=== PATIENT | male | born 1995 | race Caucasian/White ===

== ENCOUNTER 2016-12-25 14:18 | Emergency (ER) | payer OTHER ==
[2016-12-25 14:47] VITALS: BMI 34.4
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
[2016-12-25] MEDS ORDERED: DIPHTH,PERTUSS(ACELL),TET 0.5 ML DISP.SYRIN IM ONE (15:29)
[2016-12-25] MEDS ORDERED: IBUPROFEN 600 MG TABLET (FP) PO ONE ×2 (15:29→15:43)
[2016-12-25] MEDS ORDERED: SULFAMETHOXAZOLE/TRIMETHOPRIM 800MG/160MG D.S. TABLET PO ONE (15:29)
[2016-12-25] MEDS ORDERED: CEPHALEXIN MONOHYDRATE 500 MG CAPSULE (UD) PO ONE (15:42)
[2016-12-25] MEDS ORDERED: SULFAMETHOXAZOLE/TRIMETHOPRIM 800MG/160MG D.S. TABLET ONE (15:43)
[2016-12-25] MEDS ORDERED: CEPHALEXIN MONOHYDRATE 250 MG CAPSULE (FP) ONE (15:57)
[2016-12-25 16:04] VITALS: BP 140/88; PULSE 82; TEMP 98.7
== END 2016-12-25 16:04 | disposition home or self-care (01) ==
LOC: JER 14:18
PROC: 3E0234Z Introduction of Serum, Toxoid and Vaccine into Muscle, Percutaneous Approach (ICD-10-PCS; principal; 2016-12-25)
DX: T24.001A Burn of unspecified degree of unspecified site of right lower limb, except ankle and foot, initial encounter (principal); L03.116 Cellulitis of left lower limb; B96.89 Other specified bacterial agents as the cause of diseases classified elsewhere; V28.0XXA Motorcycle driver injured in noncollision transport accident in nontraffic accident, initial encounter; Y93.89 Activity, other specified
CPT/HCPCS: 87070; 87186; 87205; 90471; 90715; 99283-25

== ENCOUNTER 2017-01-20 19:15 | Emergency (ER) | payer OTHER ==
[2017-01-20 19:20] VITALS: BP 145/77; PULSE 83; TEMP 98.7; BMI 34.4
--- NOTE | 2017-01-20 20:03 | PDOC ---
History of Present Illness - General Chief Complaint: Redness To Affected Area Stated Complaint: PAIN Time Seen by Provider: 01/20/17 19:54 History Source: Patient Exam Limitations: No Limitations - History of Present Illness Initial Comments: 01/20/17 20:54 Patient is here with complaints of persistent flaking rash to his scalp. Was seen a few months ago, and prescribed griseofulvin which did not resolve his issue. Admits to get scalp, causing worsen scabbed and some mild tenderness. Denies fever, denies any other patches elsewhere. Timing/Duration: reports: constant, getting worse Severity: Yes: mild, moderate Location: reports: scalp Modifying Factors: improves with: scratching Associated Symptoms: reports: denies symptoms Past History - Travel Traveled outside of the country in the last 30 days: No Close contact w/someone who was outside of country & ill: No - Past Medical History Allergies/Adverse Reactions: Allergies Allergy/AdvReac Type Severity Reaction Status Date / Time No Known Allergies Allergy Verified 01/20/17 19:18 Home Medications: Ambulatory Orders Cephalexin [Keflex] 500 mg PO Q6H #28 capsule 12/26/16 Ibuprofen 600 mg PO Q6H #30 tablet 12/26/16 Sulfamethoxazole/Trimethoprim [Bactrim DS -] 1 tab PO BID #14 tablet 12/26/16 Sulfamethoxazole/Trimethoprim [Bactrim *Ds*] 1 each PO BID #14 tablet 01/20/17 Suicide Attempt (Hx): No - Surgical History Neurologic Surgery: Yes (Brain tumor removed) - Immunization History Immunization Up to Date: Yes - Psycho/Social/Smoking Cessation Hx Anxiety: No Suicidal Ideation: No Smoking Status: No Smoking History: Never smoked Have you smoked in the past 12 months: No Number of Cigarettes Smoked Daily: 0 Hx Alcohol Use: No Drug/Substance Use Hx: No Substance Use Type: Alcohol Review of Systems - Review of Systems Able to Perform ROS?: Yes Is the patient limited Romanian proficient: Yes Constitutional: Yes: Symptoms Reported, See HPI, Malaise. No: Fever HEENTM: Yes: Symptoms Reported, See HPI, Other (drainage and flaking of scalp) Respiratory: No: Symptoms reported Integumentary: Yes: Symptoms Reported, Bruising, Lesions, Rash Neurological: No: Symptoms reported All Other Systems: Reviewed and Negative *Physical Exam - Vital Signs Last Vital Signs Temp Pulse Resp BP Pulse Ox 98.7 F 83 18 145/77 99 01/20/17 19:18 01/20/17 19:18 01/20/17 19:18 01/20/17 19:18 01/20/17 19:18 - Physical Exam General Appearance: Yes: Nourished, Appropriately Dressed, Apparent Distress, Mild Distress HEENT: positive: RAJ, Normal ENT Inspection, TMs Normal, Pharynx Normal Neck: positive: Supple. negative: Lymphadenopathy (R), Lymphadenopathy (L) Respiratory/Chest: positive: Lungs Clear, Normal Breath Sounds Extremity: positive: Normal Capillary Refill, Normal Inspection Integumentary: positive: Rash, Other (excoriated with open wound at the crown of scalp in patches scattered throughout same area consistent with appearance of secondary impetigo with underlying tinea) Neurologic: positive: content strategy lead II-XII NML intact, Fully Oriented, Alert, Normal Mood/ Affect, Normal Response, Motor Strength 5/5 Progress Note - Progress Note Progress Note: Tinea capitis with secondary cellulitis/impetigo. She suffers from abscesses therefore is probably MRSA related and will treat with Bactrim to cover. Labs obtained to allow long-term continue treatment by PMD *DC/Admit/Observation/Transfer Diagnosis at time of Disposition: Tinea capitis Cellulitis Qualifiers: Site of cellulitis: head Qualified Code(s): L03.811 - Cellulitis of head [any part, except face] - Discharge Dispostion Disposition: HOME Condition at time of disposition: Stable Admit: No - Patient Instructions Printed Discharge Instructions: Tinea Capitis, DI for Impetigo Additional Instructions: Rest, keep cool and dry- avoid strenuous activity or hot /humid environments Less hot showers, no abrasive soaps May use Benadryl at night for antihistamine, Zyrtec/ Maria Elena or Claritin for daytime antihistamine use to help with itching Use head and shoulders and allowed to soak overnight without shampoo treatment of tinea Follow up with Private Dr for reevaluation and hopeful initiation of long-term tinea treatment t Bactrim every 12 hours for 1 week Try to identify cause for rash and avoid exposures Followup with PMD in one week if no resolution Make appointment with bank note designer for evaluation when possible - Post Discharge Activity Work/School Note: Back to Work
[2017-01-20] MEDS ORDERED: SULFAMETHOXAZOLE/TRIMETHOPRIM 800MG/160MG D.S. TABLET PO ONE (20:54)
[2017-01-20] MEDS ORDERED: SULFAMETHOXAZOLE/TRIMETHOPRIM 800MG/160MG D.S. TABLET ONE (20:58)
[2017-01-20 21:07] LABS: BASOPHIL 0.6 % (0-2.0); EOSINOPHIL 0.8 % (0-4.5); MCH 29.7 pg (25.7-33.7); MCHC 34.7 g/dl (32.0-35.9); MEAN CELL VOLUME 85.7 fl (80-96); MEAN PLT VOLUME 7.9 fl (7.5-11.1); NEUTROPHILS 67.8 % (42.8-82.8); PLATELET COUNT 261 K/MM3 (134-434); RDW 12.7 % (11.9-15.9); WHITE BLOOD COUNT 10.8 K/mm3 (4.0-10.0)
[2017-01-20 21:37] LABS: ALBUMIN 4.2 g/dl (3.4-5.0); ALK PHOS 65 U/L (45-117); ANION GAP 8 (8-16); BILIRUBIN,TOTAL 0.9 mg/dL (0.2-1.0); CALCIUM 9.6 mg/dL (8.5-10.1); CO2 27 mmol/L (21-32); CREATININE 0.9 mg/dL (0.7-1.3); GLUCOSE,RANDOM 84 mg/dL (74-106); SGOT/AST 15 U/L (15-37); SGPT/ALT 43 U/L (12-78); TOT PROT 7.8 g/dl (6.4-8.2)
== END 2017-01-20 21:16 | disposition home or self-care (01) ==
LOC: JERFT 19:15
DX: B35.0 Tinea barbae and tinea capitis (principal); L03.811 Cellulitis of head [any part, except face]; L01.09 Other impetigo
CPT/HCPCS: 36415; 80053; 85025; 99281-25

== ENCOUNTER 2017-02-16 16:30 | Emergency (ER) | payer SELFPAY ==
[2017-02-16 16:45] VITALS: BP 121/71; TEMP 98.8; BMI 33.7
[2017-02-16] MEDS ORDERED: diphenhydrAMINE HCL 25 MG CAPSULE (FP) PO ONE ×2 (17:30→17:33)
[2017-02-16] MEDS ORDERED: predniSONE 20 MG TABLET (UD) PO ONE (17:30)
--- NOTE | 2017-02-16 17:31 | PDOC ---
History of Present Illness - General Chief Complaint: Rash Stated Complaint: ALLERGIC REACTION Time Seen by Provider: 02/16/17 17:22 History Source: Patient Exam Limitations: No Limitations - History of Present Illness Initial Comments: 02/16/17 17:31 CHIEF COMPLAINT: Itching HISTORY OF PRESENT ILLNESS: This is a 21 year old male with a history of MRSA abscesses who presents for evaluation of diffuse rash/hives/itching since yesterday. Symptoms have improved somewhat with Benadryl, but are persistent. He denies shortness of breath, wheezing, and sensation of tongue swelling or throat tightness. He denies any new medications since starting griseofulvin for tinea capitis approximately 2 weeks ago. He denies new detergents or foods. He does not have any known history of food or drug allergies. V/s on arrival are notable for P 121. REVIEW OF SYSTEMS: GENERAL/CONSTITUTIONAL: No fever or chills. No weakness. No weight change. HEAD, EYES, EARS, NOSE AND THROAT: No change in vision. No ear pain or discharge. No sore throat. CARDIOVASCULAR: No chest pain or palpitations. RESPIRATORY: No cough, wheezing, or shortness of breath. GASTROINTESTINAL: No nausea, vomiting, diarrhea or constipation. GENITOURINARY: No dysuria, frequency, or change in urination. MUSCULOSKELETAL: No joint or muscle swelling or pain. No neck or back pain. SKIN: See HPI. NEUROLOGIC: No headache, vertigo, loss of consciousness, or loss of sensation. PSYCHIATRIC: No depression or anxiety. ENDOCRINE: No increased thirst. No abnormal weight change. HEMATOLOGIC/LYMPHATIC: No anemia, easy bleeding, or history of blood clots. ALLERGIC/IMMUNOLOGIC: No known food or drug allergies. PHYSICAL EXAM: GENERAL: The patient is awake, alert, and fully oriented, in no acute distress. ENT: Pupils equal, round and reactive to light, extraocular movements intact, sclera anicteric, conjunctiva clear. Neck supple. No oropharyngeal edema. LUNGS: Clear to auscultation bilaterally. Normal excursion. No respiratory distress or use of accessory muscles. CV: RRR, S1/S2, no MRG. Cap refill < 2 sec. ABDOMEN: Soft, non-distended, non-tender. EXTREMITIES: Normal range of motion, no edema. NEUROLOGICAL: Normal speech, normal gait. CN II-XII grossly intact. PSYCH: Normal mood, normal affect. SKIN: Warm, dry, normal turgor, no rashes or lesions noted. Past History - Past Medical History Allergies/Adverse Reactions: Allergies Allergy/AdvReac Type Severity Reaction Status Date / Time No Known Allergies Allergy Verified 02/16/17 16:42 Home Medications: Ambulatory Orders Prednisone [Deltasone -] 40 mg PO DAILY #10 tablet 02/16/17 Suicide Attempt (Hx): No Other medical history: DENIES - Surgical History Neurologic Surgery: Yes (Brain tumor removed) - Immunization History Immunization Up to Date: Yes - Psycho/Social/Smoking Cessation Hx Anxiety: No Suicidal Ideation: No Smoking Status: No Smoking History: Never smoked Have you smoked in the past 12 months: No Number of Cigarettes Smoked Daily: 0 Hx Alcohol Use: No Drug/Substance Use Hx: No Substance Use Type: Alcohol *Physical Exam - Vital Signs Last Vital Signs Temp Pulse Resp BP Pulse Ox 98.8 F 121 H 19 121/71 99 02/16/17 16:42 02/16/17 16:42 02/16/17 16:42 02/16/17 16:42 02/16/17 16:42 *DC/Admit/Observation/Transfer Diagnosis at time of Disposition: Rash due to allergy - Discharge Dispostion Disposition: HOME Condition at time of disposition: Stable Admit: No - Prescriptions Prescriptions: Prednisone [Deltasone -] 40 mg PO DAILY #10 tablet - Referrals Referrals: Kyle Diaz MD [Primary Care Provider] - 2 Days - Patient Instructions Printed Discharge Instructions: DI for General Allergic Reactions Additional Instructions: -Continue Benadryl (25mg every 8 hrs) -Add prednisone as prescribed -Follow up with your primary care doctor as well as an computer numerical control operator for further testing -Return here for difficulty breathing, sensation of throat or tongue swelling, or any other concerning symptoms - Post Discharge Activity Work/School Note: Back to Work
[2017-02-16] MEDS ORDERED: predniSONE 20 MG TABLET (UD) ONE ×2 (17:33→17:37)
[2017-02-16 18:04] VITALS: PULSE 105
== END 2017-02-16 18:03 | disposition home or self-care (01) ==
LOC: JERFT 16:30
DX: L50.0 Allergic urticaria (principal)
CPT/HCPCS: 99281-25

== ENCOUNTER 2017-02-18 14:49 | Emergency (ER) | payer SELFPAY ==
[2017-02-18 14:54] VITALS: BP 135/89; PULSE 98; TEMP 98; BMI 33.7
[2017-02-18] MEDS ORDERED: FAMOTIDINE 20 MG/50 ML IVPB 50 ML IVPB ONE ×2 (15:27→15:58)
[2017-02-18] MEDS ORDERED: DEXAMETHASONE SOD PHOSPHATE 10 MG/1 ML VIAL IVPB ONE (15:27)
--- NOTE | 2017-02-18 15:35 | PDOC ---
History of Present Illness - General Chief Complaint: Allergic Reaction Stated Complaint: ALLERGIC REACTION Time Seen by Provider: 02/18/17 15:18 Exam Limitations: No Limitations - History of Present Illness Initial Comments: 02/18/17 15:30 21 yr male with c/o itchy rash for 4 days getting worse, pt taking prednsione 40mg daily last dose yesterday. pt monet any shortness of breath or chest pain, pt admits to working outside on his car the past 2 days in the hot humid weather and that has made the rash worse. Pt unsure of the cause denies any medications or food allergies. no change in soaps, detergent or shampoo. Severity: Yes: moderate Location: reports: generalized Past History - Past Medical History Allergies/Adverse Reactions: Allergies Allergy/AdvReac Type Severity Reaction Status Date / Time No Known Allergies Allergy Verified 02/18/17 14:51 Home Medications: Ambulatory Orders Hydroxyzine HCl [Atarax -] 25 mg PO QID PRN #28 tablet 02/18/17 Suicide Attempt (Hx): No Other medical history: none - Surgical History Neurologic Surgery: Yes (Brain tumor removed) - Immunization History Immunization Up to Date: Yes - Psycho/Social/Smoking Cessation Hx Anxiety: No Suicidal Ideation: No Smoking Status: No Smoking History: Never smoked Have you smoked in the past 12 months: No Number of Cigarettes Smoked Daily: 0 Information on smoking cessation initiated: No Hx Alcohol Use: No Drug/Substance Use Hx: No Substance Use Type: Alcohol Review of Systems - Review of Systems Able to Perform ROS?: Yes Is the patient limited Fijian proficient: No Constitutional: No: Symptoms Reported HEENTM: No: Symptoms Reported Respiratory: No: Symptoms reported, Other Cardiac (ROS): No: Symptoms Reported ABD/GI: No: Symptoms Reported : No: Symptoms Reported Musculoskeletal: No: Symptoms Reported Integumentary: Yes: Symptoms Reported, Rash *Physical Exam - Vital Signs Last Vital Signs Temp Pulse Resp BP Pulse Ox 98.0 F 98 H 18 135/89 100 02/18/17 14:51 02/18/17 14:51 02/18/17 14:51 02/18/17 14:51 02/18/17 14:51 - Physical Exam General Appearance: Yes: Nourished, Appropriately Dressed HEENT: positive: EOMI, RAJ, TMs Normal, Pharynx Normal Neck: positive: Supple. negative: Tender Respiratory/Chest: positive: Lungs Clear, Normal Breath Sounds. negative: Chest Tender Cardiovascular: positive: Regular Rhythm, Regular Rate Gastrointestinal/Abdominal: positive: Normal Bowel Sounds, Soft Musculoskeletal: positive: Normal Inspection Extremity: positive: Normal Capillary Refill, Normal Inspection, Normal Range of Motion Integumentary: positive: Hives Neurologic: positive: Fully Oriented, Alert, Normal Mood/Affect, Normal Response , Motor Strength 5/5 Progress Note - Progress Note Progress Note: pt sleeping after medications. the rash has resolved. pt significantly improved, is ambulating freely steady gait after benadryl dc inst given all questions asked and answered Medical Decision Making - Medical Decision Making 02/18/17 15:33 cc: hives , itchy pt has had hives in the past not this spread out pt states. no fever no sob or chest pain no diff speaking taking benadryl and po prednsione day 2 no relief, pt was outside the past 2 days in the humidity and heat sweating, states the rash got worse after that. will give IV pepcid, benadryl, decadron and monitor. *DC/Admit/Observation/Transfer Diagnosis at time of Disposition: Hives - Discharge Dispostion Disposition: HOME Condition at time of disposition: Good - Prescriptions Prescriptions: Hydroxyzine HCl [Atarax -] 25 mg PO QID PRN #28 tablet PRN Reason: itching - Referrals Referrals: Kyle Diaz MD [Primary Care Provider] - Shailesh Fair MD [Staff Physician] - - Patient Instructions Additional Instructions: cool water to bathe avoid the heat avoid being outside if hot this can make rash worse the hives may last a few days however they should be getting less each day follow with the clin nurse at [facility] allergy call tomorrow to make appointment take atarax as prescribed for itching DO NOT TAKE BENADRYL if you take atarax
[2017-02-18] MEDS ORDERED: DEXAMETHASONE SOD PHOSPHATE 10 MG/1 ML VIAL ONE (15:39)
== END 2017-02-18 18:53 | disposition home or self-care (01) ==
LOC: JERFT 14:49
DX: L50.9 Urticaria, unspecified (principal)
CPT/HCPCS: 99281-25

== ENCOUNTER 2018-04-10 08:33 | Emergency (ER) | payer SELFPAY ==
[2018-04-10 08:48] VITALS: BP 140/90; PULSE 99; TEMP 99.2; BMI 38.7
--- NOTE | 2018-04-10 10:23 | PDOC ---
History of Present Illness - General Chief Complaint: Pain Stated Complaint: STOMACH PAIN/RASH Time Seen by Provider: 04/10/18 09:38 History Source: Patient Exam Limitations: No Limitations - History of Present Illness Travel History: No Initial Comments: 04/10/18 10:29 Patient is here with multiple complaints, first includes a chronic rash to his chest wall that never truly resolves, second significant/severe tinea capitis where he has been evaluated, treated with griseofulvin but has stopped that treatment. #3 chronic gastritis in the morning. Patient states has no insurance therefore has had no evaluation or Physical in many months Timing/Duration: reports: getting worse, changing over time Quality: reports: mild, moderate Past History - Travel Traveled outside of the country in the last 30 days: No Close contact w/someone who was outside of country & ill: No - Past Medical History Allergies/Adverse Reactions: Allergies Allergy/AdvReac Type Severity Reaction Status Date / Time No Known Allergies Allergy Verified 04/10/18 08:48 Home Medications: Ambulatory Orders NK [No Known Home Medication] 04/10/18 CVA: No COPD: No CHF: No Other medical history: Pituitary tumor - Surgical History Neurologic Surgery: Yes (Brain tumor removed) - Immunization History Immunization Up to Date: Yes - Suicide/Smoking/Psychosocial Hx Smoking Status: No Smoking History: Never smoked Have you smoked in the past 12 months: No Number of Cigarettes Smoked Daily: 0 Information on smoking cessation initiated: No Hx Alcohol Use: No Drug/Substance Use Hx: No Substance Use Type: Marijuana Review of Systems - Review of Systems Able to Perform ROS?: Yes Is the patient limited Wolof proficient: Yes Constitutional: Yes: Symptoms Reported, See HPI, Loss of Appetite, Malaise. No : Chills, Fever HEENTM: Yes: Symptoms Reported, See HPI Respiratory: Yes: See HPI. No: Symptoms reported, Cough, Wheezing ABD/GI: Yes: Symptoms Reported, See HPI, Nausea, Poor Appetite. No: Constipated , Diarrhea, Difficulty Swallowing, Vomiting, Abdominal cramping : No: Symptoms Reported Musculoskeletal: No: Symptoms Reported Integumentary: Yes: Symptoms Reported, See HPI, Erythema, Lesions, Pruritus, Rash Neurological: No: Symptoms reported All Other Systems: Reviewed and Negative *Physical Exam - Vital Signs Last Vital Signs Temp Pulse Resp BP Pulse Ox 99.2 F 99 H 18 140/90 99 04/10/18 08:46 04/10/18 08:46 04/10/18 08:46 04/10/18 08:46 04/10/18 08:46 - Physical Exam General Appearance: Yes: Nourished, Appropriately Dressed, Apparent Distress, Mild Distress HEENT: positive: RAJ, Normal ENT Inspection, TMs Normal, Pharynx Normal Neck: positive: Supple. negative: Tender, Lymphadenopathy (R), Lymphadenopathy (L) Respiratory/Chest: positive: Lungs Clear, Normal Breath Sounds Gastrointestinal/Abdominal: positive: Soft (morbid obesity). negative: Tender, Distended, Guarding, Rebound, Tenderness Musculoskeletal: positive: Normal Inspection. negative: CVA Tenderness Extremity: positive: Normal Capillary Refill, Normal Inspection, Normal Range of Motion Integumentary: positive: Dry, Pale, Other (erythematous maculopapular rash to chest wall with excoriation and keratinization, indicating an old chronic syndrome. No purulent drainage, nonfluctuant, is nontender to touch. Severe and extensive erythematous plaques to scalp consistent with tinea capitis). negative: Normal Color Neurologic: positive: precipitate washer II-XII NML intact, Fully Oriented, Alert, Normal Mood/ Affect, Normal Response, Motor Strength 5/5 *DC/Admit/Observation/Transfer Diagnosis at time of Disposition: Tinea capitis Gastritis Qualifiers: Gastritis type: unspecified gastritis Chronicity: unspecified Gastritis bleeding: without bleeding Qualified Code(s): K29.70 - Gastritis, unspecified, without bleeding - Discharge Dispostion Disposition: HOME Condition at time of disposition: Stable Decision to Admit order: No - Referrals Referrals: [facility] ([facility]) [Outside] - Patient Instructions Printed Discharge Instructions: DI for Tinea Corporis Additional Instructions: Rest, keep cool and dry- avoid strenuous activity or hot /humid environments Less hot showers, no abrasive soaps May use heavy creams like Eucerin or Cetaphil to keep skin moist May apply Aveeno, calamine lotion, [id number] hydrocortisone creams as needed for symptoms May use Benadryl at night for antihistamine, Zyrtec/ Maria Elena or Claritin for daytime antihistamine use to help with itching May use [id number] hydrocortisone cream on all areas except face May use head and shoulders and saturate scalp with this shampoo at night, and wash in morning. He will need long-term treatment with an antifungal medication and need to be followed closely for same. Consider Pepcid 20mg tabs twice a day for stomach upset; Try to identify cause for rash and avoid exposures Followup with PMD in one week if no resolution/ and for thorough physical exam. Make appointment with dixonac operator for evaluation when possible - Post Discharge Activity Forms/Work/School Notes: Back to Work
== END 2018-04-10 10:44 | disposition home or self-care (01) ==
LOC: JERFT 08:33
DX: B35.0 Tinea barbae and tinea capitis (principal); K29.70 Gastritis, unspecified, without bleeding
CPT/HCPCS: 99281-25

== ENCOUNTER 2018-08-12 10:40 | Day surgery (SDC) | payer OTHER ==
[2018-08-09 08:59] VITALS: BMI 38.7
[2018-08-12] MEDS ORDERED: BUPIVACAINE HCL/PF 0.5% (5MG/ML) 10 ML VIAL ONE (13:20)
[2018-08-12] MEDS ORDERED: MIDAZOLAM HCL 2 MG/2 ML SINGLE DOSE VIAL ONE ×2 (13:35→13:48)
[2018-08-12] MEDS ORDERED: ceFAZolin SODIUM 1 GM VIAL ONE (13:35)
[2018-08-12] MEDS ORDERED: PROPOFOL 20 ML ONE ×2 (13:35)
[2018-08-12] MEDS ORDERED: ceFAZolin SODIUM 1 GM VIAL IVPB ONE (13:50)
[2018-08-12] MEDS ORDERED: DEXAMETHASONE SOD PHOSPHATE 4 MG/1 ML VIAL ONE (14:04)
[2018-08-12] MEDS ORDERED: BUPIVACAINE HCL/PF (5 MG/ML) 30 ML VIAL IJ ONE (15:04)
[2018-08-12] MEDS ORDERED: IBUPROFEN 800 MG/8 ML IJ IVPB PRN (15:27)
[2018-08-12] MEDS ORDERED: oxyCODONE HCL 5 MG TABLET PO PRN (15:27)
[2018-08-12] MEDS ORDERED: ONDANSETRON 4 MG/2 ML VIAL IVPUSH PRN (15:27)
[2018-08-12] MEDS ORDERED: LACTATED RINGERS SOLUTION 1,000 ML IV SCH (15:30)
--- NOTE | 2018-08-12 15:44 | OP ---
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
[2018-08-12 17:16] VITALS: BP 145/68; PULSE 75; TEMP 97.9
--- NOTE | 2018-08-13 09:57 | OP ---
DATE OF OPERATION: 08/12/2018 PREOPERATIVE DIAGNOSES: Penile deformity and phimosis. POSTOPERATIVE DIAGNOSES: Penile deformity and phimosis. PROCEDURE: Circumcision and penoplasty. ANESTHESIA: General. The patient presents with a history of a tight phimosis with inability to retract the foreskin. In addition, the patient has had numerous injuries to the frenulum with scarring of the frenulum. The patient and his family have been given all the risks and benefits of the procedure. They agreed to the procedure in order to minimize further injury to the penis. The patient was brought in the operating room, placed in supine position on the operating room table. Antibiotics were given preoperatively for surgical prophylaxis. The patient's status as to allergies to medication is noted. At this point, the patient was prepped and draped in the usual sterile manner. The distal preputial skin is excised utilizing the guillotine technique. At this point, the proximal penile skin below the glans is cut to allow a 1.5-cm fringe below the glans. The frenulum and scarred aspects of the glans are excised and sent for specimen. At this point, hemostasis is obtained utilizing electrocauterization circumferentially. A stay stitch is placed in the glans at the level of the frenular insertion. With traction, the glans is then reapproximated with interrupted chromic stitches. A 2-layer closure is utilized for the glans. At this point, the subcutaneous tissue is reapproximated circumferentially. With this accomplished, interrupted chromic stitches are placed circumferentially to reapproximate the penile skin. Excellent hemostasis was obtained, no complications were noted. A dressing is placed at the end of the procedure. The stay suture is removed. Marcaine was injected preoperatively and postoperatively in order to minimize anesthesia. Regine [id number]
--- NOTE | 2018-08-14 16:36 | PATH ---
Surgical Pathology Report Patient Name: EVERETT MUELLER [facility]. Rec. #: [id number] /Age/Gender: 1995 (Age: 23) / M Account: [id number] Location: [facility] Taken: 08/12/2018 Received: 08/13/2018 Reported: 08/14/2018 Physicians: Zeferino Trivedi Specimen(s) Received A: FORESKIN B: GLANS Clinical History Phimosis Final Diagnosis A. FORESKIN, EXCISION: SEGMENT OF FORESKIN WITH FOCAL ACANTHOSIS AND MILD NONSPECIFIC CHRONIC INFLAMMATION. B. GLANS, BIOPSY: SEGMENT OF SQUAMOUS EPITHELIUM WITH FOCAL MILD NONSPECIFIC CHRONIC INFLAMMATION. Electronically Signed Jessica Velazquez M.D. Gross Description A. Received in formalin labeled "foreskin," are 2 lan brown, wrinkled portions of skin, consistent with foreskin. The specimens measure 4.5 x 2.0 x 0.5 cm and 5.5 x 3.5 x 0.4 cm. Bilingual Spanish Inbound Sales sections are submitted in one cassette. B. Received in formalin labeled "glans," is a 1.0 x 0.6 x 0.2 cm lan-brown portion of skin. The specimen is bisected and entirely submitted in one cassette. /08/13/201808/13/2018
== END 2018-08-12 17:00 | disposition home or self-care (01) ==
LOC: JASU-SURG 10:40
PROVIDERS: ATTEND Urology
PROC: 0VTTXZZ Resection of Prepuce, External Approach (ICD-10-PCS; principal; 2018-08-12 12:00)
PROC: 0VTTXZZ Resection of Prepuce, External Approach (ICD-10-PCS; 2018-08-12 12:00)
DX: N47.1 Phimosis (principal); N48.89 Other specified disorders of penis
CPT/HCPCS: 88304-TC; 94760

== ENCOUNTER 2018-08-20 03:09 | Emergency (ER) | payer OTHER ==
[2018-08-20 03:53] VITALS: BP 144/85; PULSE 73; TEMP 98.2; BMI 36.2
--- NOTE | 2018-08-20 04:05 | PDOC ---
History of Present Illness - General Chief Complaint: Pain, Acute Stated Complaint: GROIN PROBLEM, S/P SURGERY Time Seen by Provider: 08/20/18 04:05 Past History - Past Medical History Allergies/Adverse Reactions: Allergies Allergy/AdvReac Type Severity Reaction Status Date / Time No Known Allergies Allergy Verified 08/20/18 03:52 Home Medications: Ambulatory Orders Ketoconazole 08/12/18 Ketoconazole 2% Shampoo 2 applic TP DAILY 08/12/18 Anemia: No Asthma: No Cancer: No Cardiac Disorders: No CVA: No COPD: No CHF: No Dementia: No Diabetes: No GI Disorders: No Disorders: No HTN: No Hypercholesterolemia: No Liver Disease: No Seizures: No Thyroid Disease: No - Surgical History Neurologic Surgery: Yes (Brain tumor removed BENIGN AT 13 YEARS OLD) - Immunization History Immunization Up to Date: Yes - Suicide/Smoking/Psychosocial Hx Smoking Status: No Smoking History: Never smoked Have you smoked in the past 12 months: No Number of Cigarettes Smoked Daily: 0 Information on smoking cessation initiated: No Hx Alcohol Use: No Drug/Substance Use Hx: No Substance Use Type: Marijuana Hx Substance Use Treatment: Yes (QUIT SMOKING MARIJUANA 06/2018) *Physical Exam - Vital Signs Last Vital Signs Temp Pulse Resp BP Pulse Ox 98.2 F 73 19 144/85 97 08/20/18 03:09 08/20/18 03:09 08/20/18 03:09 08/20/18 03:09 08/20/18 03:09 Moderate Sedation - Procedure Monitoring Vital Signs: Procedure Monitoring Vital Signs Temperature 98.2 F 08/20/18 03:09 Pulse Rate 73 08/20/18 03:09 Respiratory Rate 19 08/20/18 03:09 Blood Pressure 144/85 08/20/18 03:09 O2 Sat by Pulse Oximetry (%) 97 08/20/18 03:09 *DC/Admit/Observation/Transfer - Discharge Dispostion Condition at time of disposition: Fair - Referrals Referrals: Kyle Diaz MD [Primary Care Provider] - - Patient Instructions - Post Discharge Activity
--- NOTE | 2018-08-20 04:08 | PDOC ---
Attending Attestation - Resident Resident Name: Sena Borrego - ED Attending Attestation I have performed the following: I have examined & evaluated the patient, The case was reviewed & discussed with the resident, I agree w/resident's findings & plan
--- NOTE | 2018-08-20 04:14 | PDOC ---
*Physical Exam - Vital Signs Last Vital Signs Temp Pulse Resp BP Pulse Ox 98.2 F 73 19 144/85 97 08/20/18 03:09 08/20/18 03:09 08/20/18 03:09 08/20/18 03:09 08/20/18 03:09 Medical Decision Making - Medical Decision Making 08/20/18 04:14 Patient seen by the advanced practice provider under my direct supervision. Ancillary testing reviewed as necessary. I agree with plan as outlined by the advanced practice provider. *DC/Admit/Observation/Transfer Diagnosis at time of Disposition: Follow-up after circumcision, Infected wound - Discharge Dispostion Disposition: HOME Condition at time of disposition: Fair - Prescriptions Prescriptions: Sulfamethoxazole/Trimethoprim [Bactrim Ds -] 1 tab PO BID #14 tablet - Referrals Referrals: Kyle Diaz MD [Primary Care Provider] - - Patient Instructions Printed Discharge Instructions: DI for Circumcision Additional Instructions: wash with warm water. pat dry keep clean and dry take Bactrim as prescribed. follow up with urology as soon as possible. - Post Discharge Activity Forms/Work/School Notes: Back to Work
--- NOTE | 2018-08-20 04:34 | PDOC ---
History of Present Illness - General Chief Complaint: Pain, Acute Stated Complaint: GROIN PROBLEM, S/P SURGERY Time Seen by Provider: 08/20/18 04:05 History Source: Patient - History of Present Illness Initial Comments: 08/20/18 04:29 23 year old male s/p circumcision 1 week ago c/o pain to the surgical site with erection and redness to the glans. Urology: Navin Wiseman Past History - Past Medical History Allergies/Adverse Reactions: Allergies Allergy/AdvReac Type Severity Reaction Status Date / Time No Known Allergies Allergy Verified 08/20/18 03:52 Home Medications: Ambulatory Orders Acetaminophen W/ Codeine #3 [Tylenol # 3 -] 1 tab PO Q6H 08/20/18 Amoxicillin/Potassium Clav [Augmentin 500-125 Tablet] 1 each PO BID 08/20/18 Sulfamethoxazole/Trimethoprim [Bactrim Ds -] 1 tab PO BID #14 tablet 08/20/18 Anemia: No Asthma: No Cancer: No Cardiac Disorders: No CVA: No COPD: No CHF: No Dementia: No Diabetes: No GI Disorders: No Disorders: No HTN: No Hypercholesterolemia: No Liver Disease: No Seizures: No Thyroid Disease: No - Surgical History Neurologic Surgery: Yes (Brain tumor removed BENIGN AT 13 YEARS OLD) - Immunization History Immunization Up to Date: Yes - Suicide/Smoking/Psychosocial Hx Smoking Status: No Smoking History: Never smoked Have you smoked in the past 12 months: No Number of Cigarettes Smoked Daily: 0 Information on smoking cessation initiated: No Hx Alcohol Use: No Drug/Substance Use Hx: No Substance Use Type: Marijuana Hx Substance Use Treatment: Yes (QUIT SMOKING MARIJUANA 06/2018) Review of Systems - Review of Systems Able to Perform ROS?: Yes Is the patient limited Vietnamese proficient: No Constitutional: No: Symptoms Reported, See HPI, Chills, Diaphoresis, Fever, Loss of Appetite, Malaise, Night Sweats, Weakness, Weight Stable, Unintentional Wgt. Loss, Unexplained wgt Loss, Other : Yes: Other (penile pain) *Physical Exam - Vital Signs Last Vital Signs Temp Pulse Resp BP Pulse Ox 98.2 F 73 19 144/85 97 08/20/18 03:09 08/20/18 03:09 08/20/18 03:09 08/20/18 03:09 08/20/18 03:09 - Physical Exam General Appearance: Yes: Appropriately Dressed Male Genitalia: positive: normal genitalia, other (glans erythema, no active bleeding no penile discharge) Moderate Sedation - Procedure Monitoring Vital Signs: Procedure Monitoring Vital Signs Temperature 98.2 F 08/20/18 03:09 Pulse Rate 73 08/20/18 03:09 Respiratory Rate 08/20/18 03:09 Blood Pressure 144/85 08/20/18 03:09 O2 Sat by Pulse Oximetry (%) 97 08/20/18 03:09 Progress Note - Progress Note Progress Note: circumcision P: supportive care bactrim urology follow up *DC/Admit/Observation/Transfer Diagnosis at time of Disposition: Follow-up after circumcision, Infected wound - Discharge Dispostion Disposition: HOME Condition at time of disposition: Fair - Prescriptions Prescriptions: Sulfamethoxazole/Trimethoprim [Bactrim Ds -] 1 tab PO BID #14 tablet - Referrals Referrals: Kyle Diaz MD [Primary Care Provider] - - Patient Instructions Printed Discharge Instructions: DI for Circumcision Additional Instructions: wash with warm water. pat dry keep clean and dry take Bactrim as prescribed. follow up with urology as soon as possible. - Post Discharge Activity Forms/Work/School Notes: Back to Work
== END 2018-08-20 04:51 | disposition home or self-care (01) ==
LOC: JER 03:09
DX: T81.41XA Infection following a procedure, superficial incisional surgical site, initial encounter (principal)
CPT/HCPCS: 99282-25

== ENCOUNTER 2022-04-22 14:59 | Emergency (ER) | payer SELFPAY ==
[2022-04-22 15:10] VITALS: BP 134/83; PULSE 98; RESP 18; TEMP 98.3; BMI 44.6
[2022-04-22] MEDS ORDERED: predniSONE 20 MG TABLET (UD) PO ONE (16:07)
[2022-04-22] MEDS ORDERED: diphenhydrAMINE HCL 25 MG CAPSULE (FP) PO ONE ×2 (16:07→16:09)
[2022-04-22] MEDS ORDERED: FAMOTIDINE 20 MG TABLET PO ONE (16:07)
[2022-04-22] MEDS ORDERED: predniSONE 20 MG TABLET (UD) ONE (16:09)
[2022-04-22] MEDS ORDERED: FAMOTIDINE 20 MG TABLET ONE (16:09)
== END 2022-04-22 16:25 | disposition home or self-care (01) ==
LOC: JERFT 14:59
DX: T78.40XA Allergy, unspecified, initial encounter (principal)
CPT/HCPCS: 99283-25

== ENCOUNTER 2022-04-24 23:58 | Observation (INO) | payer SELFPAY ==
[2022-04-25] MEDS ORDERED: FAMOTIDINE 20 MG/50 ML IVPB 20 MG/50 ML MG IVPB ONE ×3 (00:46→16:48)
[2022-04-25] MEDS ORDERED: DEXAMETHASONE SOD PHOSPHATE 10 MG/1 ML VIAL IVPUSH ONE (00:46)
[2022-04-25] MEDS ORDERED: ALBUTEROL SO4 2.5/IPRATROPIUM 0.5 INH SOL 3 ML VIAL.NEB. NEB ONE ×2 (00:47→01:15)
[2022-04-25] MEDS ORDERED: DEXAMETHASONE SOD PHOSPHATE 10 MG/1 ML VIAL ONE (01:15)
[2022-04-25] MEDS ORDERED: EPINEPHrine/PF 1 MG/1 ML (1:1,000) AMPULE ONE (03:31)
[2022-04-25] MEDS ORDERED: EPINEPHrine/PF 1 MG/1 ML (1:1,000) AMPULE IM ONE (03:34)
[2022-04-25] MEDS ORDERED: methylPREDNISolone NA SUCC 125 MG/2 ML VIAL IVPUSH ONE (09:40)
[2022-04-25] MEDS ORDERED: diphenhydrAMINE HCL 25 MG CAPSULE (FP) PO PRN (16:37)
[2022-04-25] MEDS ORDERED: ALBUTEROL SO4 HFA INHALER IH PRN (20:02)
[2022-04-25] MEDS ORDERED: ALBUTEROL SO4 2.5/IPRATROPIUM 0.5 INH SOL 3 ML VIAL.NEB. NEB PRN (20:03)
[2022-04-25 20:29] VITALS: RESP 20; BMI 49.7
[2022-04-25 21:14] LABS: BASO % 0.1 % (0-2.0); EOS % 0.1 % (0-4.5); HEMATOCRIT 45.1 % (35.4-49); HEMOGLOBIN 14.9 GM/dL (11.7-16.9); LYMPH % 12.6 % (8-40); MCH 28.3 pg (25.7-33.7); MCHC 33.1 g/dl (32.0-35.9); MEAN CELL VOLUME 85.4 fl (80-96); MEAN PLT VOLUME 8.9 fl (7.5-11.1); MONO % 8.8 % (3.8-10.2); NEUT % 78.4 % (42.8-82.8); PLATELET COUNT 371 10^3/uL (134-434); RBC 5.28 M/mm3 (4.00-5.60); RDW 13.5 % (11.9-15.9); WHITE BLOOD COUNT 16.3 K/mm3 (4.0-10.0)
[2022-04-25 21:29] LABS: ALBUMIN 3.8 g/dl (3.4-5.0); BLOOD UREA NITROGEN 15.9 mg/dL (7-18); CALCIUM 9.4 mg/dL (8.5-10.1)
[2022-04-25 21:32] LABS: CREATININE 1.1 mg/dL (0.55-1.3); PHOSPHOROUS 4.7 mg/dL (2.5-4.9)
[2022-04-25 21:34] LABS: TOT PROT 7.2 g/dl (6.4-8.2)
[2022-04-25] MEDS: FAMOTIDINE 20 MG/50 ML IVPB 20 MG/50 ML MG IVPB SCH (22:06)
[2022-04-25] MEDS: methylPREDNISolone NA SUCC 40 MG/1 ML VIAL IVPUSH SCH (22:06)
[2022-04-26] MEDS ORDERED: diphenhydrAMINE HCL 25 MG CAPSULE (FP) PO PRN (00:49)
[2022-04-26] MEDS: methylPREDNISolone NA SUCC 40 MG/1 ML VIAL IVPUSH SCH (10:28)
[2022-04-26] MEDS: FAMOTIDINE 20 MG/50 ML IVPB 20 MG/50 ML MG IVPB SCH (10:28)
[2022-04-26 13:14] VITALS: BP 143/73; PULSE 65; TEMP 97.3
== END 2022-04-26 13:58 | disposition home or self-care (01) ==
LOC: JER 23:58 → JERBED 04-25 05:32 → J8W 04-25 18:39
PROVIDERS: ADMIT Internal Medicine; ATTEND Internal Medicine
PROC: 3E0F7GC Introduction of Other Therapeutic Substance into Respiratory Tract, Via Natural or Artificial Opening (ICD-10-PCS; principal; 2022-04-25)
PROC: 3E033GC Introduction of Other Therapeutic Substance into Peripheral Vein, Percutaneous Approach (ICD-10-PCS; 2022-04-25)
PROC: 3E023GC Introduction of Other Therapeutic Substance into Muscle, Percutaneous Approach (ICD-10-PCS; 2022-04-25)
DX: Z29.8 Encounter for other specified prophylactic measures (principal); T78.3XXA Angioneurotic edema, initial encounter; E66.01 Morbid (severe) obesity due to excess calories; Z68.42 Body mass index [BMI] 45.0-49.9, adult
CPT/HCPCS: 36415; 80053; 83735; 84100; 85025; 93005; 93010; 94640; 96365; 96372; 96375; 96376; 99285-25; C9803-CS; G0378; J1100; U0003; U0005

== ENCOUNTER 2023-11-01 21:58 | Emergency (ER) | payer OTHER ==
[2023-11-01 22:03] VITALS: BP 134/76; PULSE 80; RESP 20; TEMP 98.6; BMI 43.0
[2023-11-01] MEDS ORDERED: CEPHALEXIN MONOHYDRATE 500 MG CAPSULE (UD) ONE (22:42)
[2023-11-01] MEDS: CEPHALEXIN MONOHYDRATE 500 MG CAPSULE (UD) PO ONE (22:51)
== END 2023-11-01 23:15 | disposition home or self-care (01) ==
LOC: JER 21:58
DX: L03.032 Cellulitis of left toe (principal); M79.89 Other specified soft tissue disorders
CPT/HCPCS: 99283-25